=== PATIENT | male | born 1985 | race Hispanic/Latino ===

== ENCOUNTER 2022-09-28 15:00 | Emergency (ER) | payer OTHER, SELFPAY ==
[2022-09-28] VITALS (10 sets, daily range): BP systolic 137–163; BP diastolic 74–109; PULSE 71–101; RESP 16; TEMP 37; O2SAT 96–99
[2022-09-28 15:33] LABS: Alanine Aminotransferase 150 IU/L (<50); Albumin 4.3 g/dL (3.5-5.0); Albumin Globulin Ratio 1.3 (1.0-2.8); Alkaline Phosphatase 74 U/L (38-126); Aspartate Aminotransferase 62 IU/L (17-59); BUN Creatinine Ratio 12.9 (6-22); Bilirubin Total 0.9 mg/dL (0.2-1.3); Blood Urea Nitrogen 13 mg/dL (9-20); Calcium 9.2 mg/dL (8.4-10.2); Carbon Dioxide 26 mmol/L (22-32); Chloride 105 mmol/L (98-107); Estimated Glomerular Filt Rate > 60 mL/min (>60); Globulin 3.3 g/dL (1.7-4.1); Glucose 98 mg/dL (70-100); HEMOLYSIS 16 (0-50); Lipase 160 U/L (23-300); Potassium 4.1 mmol/L (3.4-5.1); Sodium 140 mmol/L (137-145); Total Protein 7.6 g/dL (6.3-8.2)
[2022-09-28 15:46] LABS: Add Manual Diff / Slide Review NO; Basophils Absolute Auto 100 /uL (0-100); Basophils Percent Auto 0.6 % (0-2); Eosinophils Absolute Auto 200 /uL (0-450); Eosinophils Percent Auto 2.2 % (2-4); Hematocrit 43.5 % (41-53); Hemoglobin 15.5 g/dL (13.5-17.5); Lymphocytes Absolute Auto 3300 /uL (1100-4500); Lymphocytes Percent Auto 37.3 % (25-40); Mean Corpuscular HGB Conc 35.6 % (30-36); Mean Corpuscular Hemoglobin 32.6 PG (26-34); Mean Corpuscular Volume 91.4 fL (80-100); Monocytes Absolute Auto 600 /uL (0-900); Neutrophils Absolute Auto 4600 /uL (1500-7000); Neutrophils Percent Auto 52.9 % (50-75); Platelet Count 277 X10^3/uL (150-400); Red Blood Cell Count 4.76 X10^6/uL (4.5-5.9); Red Cell Distribution Width 13.2 % (11.6-14.8); White Blood Cell Count 8.7 X10^3/uL (4.5-11.0)
[2022-09-28] MEDS: PANTOPRAZOLE 40 MG VIAL IV (18:18)
[2022-09-28] MEDS: KETOROLAC 30 MG/ML VIAL 15 MG IV (18:19)
--- NOTE | 2022-09-28 18:30 | DI.US.S_ITS ---
PROCEDURE: US ABDOMEN LIMITED INDICATIONS: RUQ pain x 10 days TECHNIQUE: Real-time focused scanning was performed of the abdomen, with image documentation. COMPARISON: None. FINDINGS: The liver demonstrates increased echogenicity compatible with fatty infiltration. There is a large shadowing gallstone measuring up to approximately 2.2 cm within the gallbladder. Evaluation of wall thickness and gallstone mobility limited due to size of the stone. No definite gallbladder wall thickening. No pericholecystic fluid. Evaluation for sonographic Bender's sign limited secondary to prior administration of pain medication. The extrahepatic biliary ducts were not well visualized. No definite intrahepatic biliary ductal dilatation. The visualized pancreatic head and body appear increased in echogenicity. IMPRESSION: 1. Cholelithiasis with no pericholecystic fluid, definite gallbladder wall thickening, or other evidence of acute cholecystitis. Dictated by: Nasim Bucrh M.D. on 09/28/2022 at 20:16 Approved by: Nasim Burch M.D. on 09/28/2022 at 20:20
--- NOTE | 2022-09-28 18:30 | ED.ABDPAIN ---
HPI - Abdominal Pain General Chief Complaint: Abdominal Pain Stated Complaint: Upper ABD pain Time Seen by Provider: 09/28/22 18:13 Source: patient Mode of arrival: Ambulatory Limitations: no limitations History of Present Illness HPI narrative: This is a 37-year-old male history of migraines. Patient states symptoms have been present for 10 days underneath his ribs in the abdomen he states sharp pain which has been localized to that area occasionally radiates to the back but not consistently to the back. He states it has been constant in the front. Positioning such as flexing his abdomen makes it worse. Patient states food and eating do not make any difference. Patient denies fevers or chills, no nausea or vomiting, no diarrhea constipation, no bright red blood or melena. No urinary symptoms, no flank pain. Has not appreciate any lumps or bumps or bulges, no skin changes. Patient is otherwise healthy he takes Excedrin for migraines. Denies any prior surgical history. No known drug allergies. No tobacco, 2-3 beers nightly, no illicit. Primary care is through the [facility]. Related Data Previous Rx's Medication Instructions Recorded meloxicam 7.5 mg tablet 7.5 mg PO BID PRN pain #14 tabs 09/28/22 Allergies Allergy/AdvReac Type Severity Reaction Status Date / Time No Known Drug Allergies Allergy Verified 09/28/22 15:05 Review of Systems Review of Systems ROS Unobtainable: All systems reviewed & are unremarkable except as noted in HPI and below Patient History Social History Smoking Status: Never smoker Smoking Status: Never smoker alcohol intake frequency: 0-2 drinks per day Exam Narrative Exam Narrative: GENERAL: Alert and oriented x three, well-nourished male in mild distress HEENT: Head normocephalic, atraumatic, EOMI, pupils reactive, face symmetric, moist mucous membranes NECK: Supple, full range of motion CARDIOVASCULAR: Regular rate and rhythm without murmurs, rubs or gallops. RESPIRATORY: Breath sounds equal bilaterally, no wheezes rales or rhonchi. ABDOMEN: Soft, mild generalized right upper quadrant tenderness localized, no mass, lump or hernia. Normoactive bowel sounds all 4 quadrants. No guarding or rebound, rigidity, no mass : No CVA tenderness EXTREMITIES: Normal range of motion, no clubbing or edema. Neurovascularly intact NEUROLOGICAL: Cranial nerves II through XII grossly intact. Moving all extremities SKIN: Warm, dry, no petechiae, no rashes or lesions. Initial Vital Signs Initial Vital Signs: Vital Signs Temperature 98.6 F 09/28/22 15:03 Pulse Rate 84 09/28/22 15:03 Respiratory Rate 16 09/28/22 15:03 Blood Pressure 161/91 H 09/28/22 15:03 Pulse Oximetry 99 09/28/22 15:03 Oxygen Delivery Method 09/28/22 15:03 Course Orders Ordered: ED Orders 09/28/22 18:30 US abdomen limited Stat Discontinued Medications Ketorolac Tromethamine (Ketorolac 30 Mg/Ml Vial) 15 mg IV NOW ONE Stop: 09/28/22 18:14 Last Admin: 09/28/22 18:19 Dose: 15 mg Documented By: DESTINY Pantoprazole Sodium (Pantoprazole 40 Mg Vial) 40 mg IV NOW ONE Stop: 09/28/22 18:14 Last Admin: 09/28/22 18:18 Dose: 40 mg Documented By: DESTINY Tramadol HCl (Tramadol 50 Mg Prepack) 1 bottle MISC SEEINSTR ONE Stop: 09/28/22 20:54 Last Admin: 09/28/22 20:58 Dose: 1 bottle Documented By: FLAKO Consultations Consultation #1: Dr. Omer, general surgery. happy to follow up in office. Patient is currently pain controlled, no signs of infection on imaging, patient has gallstone 2.2 cm with no obvious obstruction Time: 20:55 Vital Signs Vital signs: Vital Signs - 8 hr 09/28/22 18:30 09/28/22 18:31 09/28/22 18:31 Pulse Rate 101 H 85 Blood Pressure 163/74 H Pulse Oximetry 96 98 09/28/22 19:00 09/28/22 19:00 09/28/22 19:30 Pulse Rate 71 Blood Pressure 137/86 155/96 H Pulse Oximetry 99 09/28/22 19:30 09/28/22 20:00 09/28/22 20:00 Pulse Rate 71 83 Blood Pressure 149/89 H Pulse Oximetry 99 99 09/28/22 20:30 09/28/22 20:30 09/28/22 21:00 Pulse Rate 80 78 Blood Pressure 137/85 Pulse Oximetry 99 99 MDM - Abdominal Pain Lab Data Result diagrams: 09/28/22 15:12 09/28/22 15:12 Labs: Lab Results 09/28/22 09/28/22 Range/Units 15:12 15:12 WBC 8.7 (4.5-11.0) X10^3/uL RBC 4.76 (4.5-5.9) X10^6/uL Hgb 15.5 (13.5-17.5) g/dL Hct 43.5 (41-53) % MCV 91.4 (80-100) fL MCH 32.6 (26-34) PG MCHC 35.6 (30-36) % RDW 13.2 (11.6-14.8) % Plt Count 277 (150-400) X10^3/uL Neut % (Auto) 52.9 (50-75) % Lymph % (Auto) 37.3 (25-40) % Patrick % (Auto) 7.0 (3-14) % Eos % (Auto) 2.2 (2-4) % Baso % (Auto) 0.6 (0-2) % Neut # (Auto) 4600 (3267-5564) /uL Lymph # (Auto) 3300 (9428-5945) /uL Patrick # (Auto) 600 (0-900) /uL Eos # (Auto) 200 (0-450) /uL Baso # (Auto) 100 (0-100) /uL Sodium 140 (137-145) mmol/L Potassium 4.1 (3.4-5.1) mmol/L Chloride 105 (98-107) mmol/L Carbon Dioxide 26 (22-32) mmol/L BUN 13 (9-20) mg/dL Creatinine 1.01 (0.66-1.25) mg/dL Estimated GFR > 60 (>60) mL/min BUN/Creatinine Ratio 12.9 (6-22) Glucose 98 (70-100) mg/dL Calcium 9.2 (8.4-10.2) mg/dL Total Bilirubin 0.9 (0.2-1.3) mg/dL AST 62 H (17-59) IU/L ALT 150 H (<50) IU/L Alkaline Phosphatase 74 (38-126) U/L Total Protein 7.6 (6.3-8.2) g/dL Albumin 4.3 (3.5-5.0) g/dL Globulin 3.3 (1.7-4.1) g/dL Albumin/Globulin Ratio 1.3 (1.0-2.8) Lipase 160 (23-300) U/L Point of care testing: Urine Dip Bedside Urine Glucose Negative Bedside Urine Bilirubin - Negative Bedside Urine Ketone - Negative Urine Specific [place] 1.025 Bedside Urine Occult Blood - Negative Bedside Urine pH 6 Bedside Urine Protein +/- 15 Bedside Urine Urobilinogen - Negative Bedside Urine Nitrite - Negative Bedside Urine Leukocytes - Negative Esterase Imaging Data US - abdomen: Radiologist's Impression: Close Abdomen Ultrasound (Signed) Nasim Burch - 09/28/22 [address]?[place] [address] Ultrasound Report Signed Patient: Abdi Landaverde MR#: [id number] : 1985 Acct:[id number] Age/Sex: 37 / M Date of Service: 09/28/22 Loc: ED Accession Number: [id number] ?? Procedure: US abdomen limited Ordering Provider: Tiffany Reza D.O. PROCEDURE: US ABDOMEN LIMITED ? INDICATIONS:? RUQ pain x 10 days ? TECHNIQUE:? Real-time focused scanning was performed of the abdomen, with image documentation.? ? COMPARISON:? None. ? FINDINGS:? ? The liver demonstrates increased echogenicity compatible with fatty infiltration. ? There is a large shadowing gallstone measuring up to approximately 2.2 cm within the gallbladder.? Evaluation of wall thickness and gallstone mobility limited due to size of the stone.? No definite gallbladder wall thickening.? No pericholecystic fluid.? Evaluation for sonographic Bender's sign limited secondary to prior administration of pain medication. ? The extrahepatic biliary ducts were not well visualized.? No definite intrahepatic biliary ductal dilatation. ? The visualized pancreatic head and body appear increased in echogenicity. ? IMPRESSION:? ? 1. Cholelithiasis with no pericholecystic fluid, definite gallbladder wall thickening, or other evidence of acute cholecystitis. ? ? ? Dictated by: Nasim Burch M.D. on 09/28/2022 at 20:16 ? ? Approved by: Nasim Burch M.D. on 09/28/2022 at 20:20?? ECG Data Attestation: I personally reviewed and interpreted this ECG as follows: Prior ECG tracings: not available for review Interpretation: Sinus rhythm rate 87 DE 136 QRS 88 QTC 418. No acute ST changes appreciated. No priors available. MDM Narrative Medical decision making narrative: This is a 37-year-old male with complaint of right upper quadrant pain on exam patient has some mild tenderness, afebrile, labs show slight elevation LFTs this may also be related to daily alcohol intake, ultrasound shows a 2.2 cm stone does not appear to be obstructive, patient does not have gallbladder wall thickening or pericholecystic fluids or signs of cholecystitis, examination, vitals and labs do not reflect any signs of infection. Discussed return precautions. Patient found antacids and Toradol helpful today. Will give prescription for meloxicam, pharmacy closed at this time so prepack of tramadol as I do not have reports from meloxicam and follow-up. Patient to call 1st thing in the morning with general surgery who I spoke with. Discharge Plan Departure Patient Disposition: Home Clinical Impression: Gallstones Instructions: DI for Gallstones Activity Restrictions/Additional Instructions: Follow-up with general surgery to have your gallbladder removed. Please call tomorrow morning to set up an appointment. Let the front office know I spoke with Dr. Omer and he asked for you to reach out. You have a large gallstone in your gallbladder causing your discomfort. Your gallbladder does not appear infected today. You can take meloxicam 1 tablet every 12 hours as needed for pain. You can take Tylenol up to a 1000 mg every 6 hours with this medication. [facility]cription [facility] in [place]. Please return for fevers, rapidly worsening pain, persistent vomiting, lightheadedness or passing out signs of infection or other new or worsening symptoms Prescriptions: New meloxicam 7.5 mg tablet 7.5 mg PO BID PRN (Reason: pain) Qty: 14 0RF Referrals: Radha Woody ARNP [Primary Care Provider] - Eduardo Omer MD [Physician] - Visit Report Forms: Patient Portal/API
[2022-09-28] MEDS: TRAMADOL 50 MG PREPACK 1 BOTTLE MISC (20:58)
== END 2022-09-28 21:02 | disposition home or self-care (01) ==
PROVIDERS: Emergency Medicine; Emergency Provider Emergency Medicine; PCP Nurse Practitioner Family
DX: K80.20 Calculus of gallbladder without cholecystitis without obstruction (principal)
CPT/HCPCS: 36415; 76705; 80053; 81003; 83690; 85025; 93005; 96374; 96375; 99284; C9113; J1885

== ENCOUNTER → 2022-10-16 10:23 | Outpatient (CLI) | payer OTHER, SELFPAY ==
[2022-10-16 12:07] LABS: COVID19 -Nasal RAPID Negative (Negative)
== END ==
PROVIDERS: PCP Nurse Practitioner Family; Visit Provider Surgery
DX: Z20.822 Contact with and (suspected) exposure to COVID-19 (principal); Z01.812 Encounter for preprocedural laboratory examination
CPT/HCPCS: 87635; C9803

== ENCOUNTER 2022-10-17 11:50 | Day surgery (SDC) | payer OTHER, SELFPAY ==
[2022-10-14 08:15] VITALS: BMI 33.5
--- NOTE | 2022-10-17 | DI.RAD.S_ITS ---
PROCEDURE: XR CHOLANGIOGRAM OPERATIVE INDICATIONS: OR COMPARISON: None. FINDINGS: Biliary ducts: The surgeon injected contrast into the biliary ducts after cannulation of the cystic duct stump. Visualized intra- and extrahepatic bile ducts are normal in caliber, without strictures. No intraluminal filling defects to suggest retained ductal stones or sludge. No evidence for iatrogenic ductal injury. Duodenum: Contrast flows promptly through the sphincter of Oddi into the duodenum, which appears normal in caliber. IMPRESSION: Normal operative cholangiogram. Dictated by: Olivier Prado M.D. on 10/17/2022 at 16:28 Approved by: Olivier Prado M.D. on 10/17/2022 at 16:28
--- NOTE | 2022-10-17 | PATH_ITS ---
[facility] Accession Number: [id number] . 01 Material submitted: . gallbladder - GALLBLADDER . 01 Diagnosis: Gallbladder, Cholecystectomy: Cholelithiasis with chronic cholecystitis. No evidence of neoplasm. MRV 10/21/2022 1405 Local . 01 Electronically signed: . Michael Lock MD, PhD, Pathologist NPI- [id number] . 01 Gross description: . The specimen is received in formalin, labeled with the patient's name, , and gallbladder, and consists of an intact gallbladder measuring 6.5 x 3.2 x 2.9 cm. The serosa is nagel and smooth. The hepatic surface is rough and unremarkable. The cystic duct is received closed with a clamp, is inked blue. No pericystic lymph node is identified. Opening the specimen reveals a large brown, roughened calculus measuring 2.9 cm in greatest dimension along with a small amount of brown mucoid bile. The mucosa is brown, velvety, and focally denuded in the area adjacent to the calculus. Multiple yellow pinpoint areas of discoloration are identified consistent with cholesterol deposits. No polyps or lesions are identified. The norris average 0.3 cm thick. Virtual Classroom Manager sections to include the cystic duct margin and full-thickness sections are submitted in cassette A1. ([id number]) /FRR 10/18/2022 1615 Local . 01 Pathologist provided ICD-10: K80.60 . 01 CPT . 175226 Specimen Comment: A courtesy copy of this report has been sent to [phone] Performed at: 01 [facility] [address] [place] [address] [address], [place], [place] [id number] MD Nasim Rod MD Phone: [phone]
[2022-10-17 12:12] VITALS: BP 152/94; PULSE 69; RESP 16; TEMP 36.1; O2SAT 99; BMI 33.5
[2022-10-17] MEDS: LACTATED RINGERS 1,000 ML 42 ML IV (12:23)
--- NOTE | 2022-10-17 14:00 | PM.PREOP ---
Pre-operative Note COVID-19 COVID-19 status: Negative Result date/Date tested (Pos, Neg/Pending): 10/16/22 Interval Note History & Physical reviewed/Exam performed by Physician: Yes Changes to H&P: No ASA Class (for procedural sedation): II
[2022-10-17] MEDS: CEFAZOLIN 2 GM/100 ML PREMIX 100 ML IV (14:51)
--- NOTE | 2022-10-17 15:11 | SUR.OPER ---
Addendum entered by Radha Morin R.N. 10/17/22 15:24: left arm secured on padded arm board, right arm tucked Original Note: Supine on padded OR bed, head on pillow, arms secured on padded arm boards at <90 degrees abduction, legs uncrossed, safety belt at thigh, feet flat to footboard
[2022-10-17] MEDS: IOPAMIDOL 50 ML VIAL INJ (15:28)
[2022-10-17] MEDS: BUPIVACAINE 0.25% (PF) VIAL 30 ML INJ (16:19)
[2022-10-17] MEDS: LIDOCAINE 1% 20 ML INJ (16:21)
[2022-10-17 16:30] VITALS: BP 127/76; PULSE 92; RESP 16; TEMP 36.6; O2SAT 100
--- NOTE | 2022-10-17 16:33 | P.OP_ITS ---
Operative Date/Time/Diagnoses Date of procedure: 10/17/22 Time of procedure: 16:33 Pre-op diagnosis: Gallstones Post-op diagnosis: same Procedure & Clinicians Procedure: Laparoscopic cholecystectomy with intraoperative cholangiogram Same procedure as scheduled: Yes Surgeon: Dannie Whalen Anesthesia Type: General Operative Notes Procedure in detail: The patient was given preoperative antibiotic. The patient was brought to the operating room, placed on the table in the supine position. General endotracheal anesthesia was induced. The abdomen was prepped and draped. A time-out was performed. We made a 1 cm infraumbilical incision. We dissected down to the base of the umbilical stalk using cautery. We grasped the umbilical stalk with a Shreyas clamp to elevate the abdominal wall. We scored the fascia in the midline with cautery 1 cm. We pierced the peritoneum with a Peon clamp. The Julianne port was placed and the abdomen was insufflated to 15 mmHg. A 5 mm 30 degree laparoscopic was inserted. There was no evidence of any injury from the entry. Next, we placed 5 mm ports in the subxiphoid position and right upper quadrant at the midclavicular line and anterior axillary line. Patient was then positioned in reverse Trendelenburg and the table was tilted to the left. The patient had hepatomegaly and the gallbladder was intrahepatic. The gallbladder was grasped at the dome and retracted cephalad. We then dissected the cystic structures with a combination of hook cautery and blunt dissection. Next, a cholangiogram was performed using the 6 Ethiopian ureteral catheter. There was good flow of contrast into the duodenum and liver with no obvious filling defects. The cystic duct common duct junction was well visualized. We then placed clips on the cystic duct and artery and divided the cystic duct and artery sharply between the clips. The gallbladder was then dissected off the liver. There was a very large stone in the mid portion of the gallbladder. Gallbladder did tear several times with spillage of bile. The gallbladder was p laced in a specimen retrieval bag. We irrigated the right upper quadrant and all the aspirate returned clear. We then removed the 5 mm ports under direct vision we removed the Julianne port. The infraumbilical fascial defect had to be increased to about 3 cm to extract the specimen. We then injected some local into the fascia and closed the fascia with 4 interrupted 0 Vicryl sutures. The skin incisions were closed with 4 Monocryl and Steri-Strips were applied. Band- Aids were applied over the Steri-Strips. EBL: 30 mL Specimen: Gallbladder Post-operative Condition: stable Disposition: PACU
[2022-10-17 16:36] VITALS: BP 128/83; PULSE 94; RESP 16; O2SAT 99
[2022-10-17 16:40] VITALS: BP 138/84; PULSE 97; RESP 16; TEMP 36.9; O2SAT 99
[2022-10-17 16:48] VITALS: BP 131/85; PULSE 98; RESP 16; TEMP 37; O2SAT 99
[2022-10-17] MEDS: OXYCODONE/ACETAMINOPHEN 5/325 TABLET 1 TAB PO (17:01)
== END 2022-10-17 17:30 | disposition home or self-care (01) ==
PROVIDERS: PCP Nurse Practitioner Family; Referring Provider Surgery; Visit Provider Surgery
PROC: 0FT44ZZ Resection of Gallbladder, Percutaneous Endoscopic Approach (ICD-10-PCS; CPT 47562; principal; 2022-10-17 14:30)
DX: K80.10 Calculus of gallbladder with chronic cholecystitis without obstruction (principal)
CPT/HCPCS: 47563; 74300; J0690; J1100; J1885; J2250; J2405; J2704; J3010

== ENCOUNTER → 2022-10-22 12:23 | Outpatient (CLI) | payer OTHER, SELFPAY ==
[2022-10-22 14:18] LABS: Alanine Aminotransferase 219 IU/L (<50); Albumin 4.3 g/dL (3.5-5.0); Albumin Globulin Ratio 1.4 (1.0-2.8); Alkaline Phosphatase 73 U/L (38-126); Aspartate Aminotransferase 77 IU/L (17-59); BUN Creatinine Ratio 11.9 (6-22); Bilirubin Total 1.2 mg/dL (0.2-1.3); Blood Urea Nitrogen 10 mg/dL (9-20); Calcium 9.8 mg/dL (8.4-10.2); Carbon Dioxide 26 mmol/L (22-32); Chloride 101 mmol/L (98-107); Estimated Glomerular Filt Rate > 60 mL/min (>60); Glucose 86 mg/dL (70-100); HEMOLYSIS < 15 (0-50); Lipase 137 U/L (23-300); Potassium 4.6 mmol/L (3.4-5.1); Sodium 138 mmol/L (137-145); Total Protein 7.3 g/dL (6.3-8.2)
[2022-10-22 14:27] LABS: Add Manual Diff / Slide Review NO; Basophils Absolute Auto 0 /uL (0-100); Basophils Percent Auto 0.5 % (0-2); Eosinophils Absolute Auto 200 /uL (0-450); Eosinophils Percent Auto 2.1 % (2-4); Hematocrit 43.7 % (41-53); Hemoglobin 15.5 g/dL (13.5-17.5); Lymphocytes Absolute Auto 2600 /uL (1100-4500); Lymphocytes Percent Auto 29.6 % (25-40); Mean Corpuscular HGB Conc 35.5 % (30-36); Mean Corpuscular Hemoglobin 32.6 PG (26-34); Mean Corpuscular Volume 91.8 fL (80-100); Monocytes Absolute Auto 700 /uL (0-900); Monocytes Percent Auto 7.9 % (3-14); Neutrophils Absolute Auto 5200 /uL (1500-7000); Neutrophils Percent Auto 59.9 % (50-75); Platelet Count 241 X10^3/uL (150-400); Red Blood Cell Count 4.76 X10^6/uL (4.5-5.9); Red Cell Distribution Width 13.3 % (11.6-14.8); White Blood Cell Count 8.8 X10^3/uL (4.5-11.0)
== END ==
PROVIDERS: PCP Nurse Practitioner Family; Referring Provider Surgery; Visit Provider Surgery
DX: K80.20 Calculus of gallbladder without cholecystitis without obstruction (principal)
CPT/HCPCS: 36415; 80053; 83690; 85025

== ENCOUNTER → 2022-12-31 10:10 | Outpatient (CLI) | payer OTHER, SELFPAY ==
--- NOTE | 2022-12-31 10:12 | DI.CT.S_ITS ---
PROCEDURE: CT ABDOMEN PELVIS W CON INDICATIONS: Right rib pain TECHNIQUE: After the administration of oral and intravenous contrast, axial sections were acquired from the lung bases to the pubic symphysis. Coronal and sagittal reformats were performed. For radiation dose reduction, the following was used: automated exposure control, adjustment of mA and/or kV according to patient size. COMPARISON:None. FINDINGS: Image quality: Excellent. Lung bases: Unremarkable. Heart: No significant findings. ABDOMEN: Liver: The liver is diffusely hypodense suggesting fatty infiltration. Gallbladder: Surgically absent. Biliary ducts: Unremarkable. Pancreas: Unremarkable. Spleen: Unremarkable. Adrenal Glands: Unremarkable. Kidneys and Ureters: Unremarkable. Stomach and Bowel: Stomach, small bowel loops, and colon are unremarkable. The appendix is thin walled and gas filled. Peritoneum: No abnormal intraperitoneal fluid. No free air. Ventral Wall: No hernia. Abdominal Nodes: No retroperitoneal or mesenteric adenopathy by size criteria. Vessels: Aorta and inferior vena cava are normal in size. PELVIS: Pelvic Organs: Unremarkable. Bladder: Unremarkable. Pelvic Nodes: No enlarged lymph nodes. Miscellaneous: No inguinal hernias are seen. Bones: Unremarkable. IMPRESSION: 1. No acute intra-abdominal findings. Normal appendix. 2. Hepatic steatosis. 3. No findings to explain rib pain where visualized. Please note, only the abdomen and pelvis or imaged. The entirety of the thorax has not been interrogated on this study. Dictated by: Annalise Patel M.D. on 12/31/2022 at 14:40 Approved by: Annalise Patel M.D. on 12/31/2022 at 14:52
[2022-12-31 10:48] LABS: Add Manual Diff / Slide Review NO; Basophils Absolute Auto 100 /uL (0-100); Basophils Percent Auto 0.9 % (0-2); Eosinophils Absolute Auto 200 /uL (0-450); Eosinophils Percent Auto 3.2 % (2-4); Hematocrit 45.6 % (41-53); Hemoglobin 16.1 g/dL (13.5-17.5); Lymphocytes Absolute Auto 2400 /uL (1100-4500); Lymphocytes Percent Auto 38.7 % (25-40); Mean Corpuscular HGB Conc 35.3 % (30-36); Mean Corpuscular Hemoglobin 32.3 PG (26-34); Mean Corpuscular Volume 91.6 fL (80-100); Monocytes Absolute Auto 500 /uL (0-900); Monocytes Percent Auto 8.2 % (3-14); Neutrophils Absolute Auto 3100 /uL (1500-7000); Platelet Count 239 X10^3/uL (150-400); Red Blood Cell Count 4.98 X10^6/uL (4.5-5.9); Red Cell Distribution Width 13.4 % (11.6-14.8); White Blood Cell Count 6.3 X10^3/uL (4.5-11.0)
[2022-12-31 10:58] LABS: Alanine Aminotransferase 281 IU/L (<50); Albumin 4.6 g/dL (3.5-5.0); Albumin Globulin Ratio 1.4 (1.0-2.8); Alkaline Phosphatase 77 U/L (38-126); Aspartate Aminotransferase 138 IU/L (17-59); BUN Creatinine Ratio 13.1 (6-22); Bilirubin Total 1.4 mg/dL (0.2-1.3); Blood Urea Nitrogen 11 mg/dL (9-20); Calcium 9.5 mg/dL (8.4-10.2); Carbon Dioxide 26 mmol/L (22-32); Chloride 104 mmol/L (98-107); Estimated Glomerular Filt Rate > 60 mL/min (>60); Globulin 3.3 g/dL (1.7-4.1); Glucose 95 mg/dL (70-100); HEMOLYSIS < 15 (0-50); Potassium 4.2 mmol/L (3.4-5.1); Sodium 139 mmol/L (137-145); Total Protein 7.9 g/dL (6.3-8.2)
== END ==
PROVIDERS: PCP Nurse Practitioner Family; Referring Provider Surgery; Visit Provider Surgery
DX: R07.81 Pleurodynia (principal); K76.0 Fatty (change of) liver, not elsewhere classified; Z90.49 Acquired absence of other specified parts of digestive tract
CPT/HCPCS: 36415; 74177; 80053; 85025; 99213; Q9967

== ENCOUNTER → 2023-02-20 13:29 | Outpatient (CLI) | payer OTHER, SELFPAY ==
--- NOTE | 2023-02-20 | DI.ECHO.S_ITS ---
[facility] +---------+ : : [address] : [address] : : : : [id number] : : : : Phone: [phone]+ Echocardiogram Report + + :Name: RAJ ALAN Study Date: 02/20/2023 Height: 67 in : :[facility] ReadingLocation: Weight: 215 lb : : Gender: Male BSA: 2.1 m2 : :: 1985 Age: 37 yrs BP: 141/85 mmHg: :Reason For Study: HYPERTENSION HR: 80 : :Ordering Physician: ELY, : :VENKAT Performed By: HERMAN SAEED : :Referring: VENKAT WILDE : + + Interpretation Summary 1) Normal left ventricular thickness, size, wall motion, and systolic function (EF 55-60%). 2) Normal right ventricular size and function. 3) No significant valvular abnormalities. 4) No prior Echo available for comparison. Procedure: A two-dimensional transthoracic echocardiogram with color flow and Doppler was performed. The study quality was technically adequate. There is no prior echocardiogram noted for this patient. The patient was in normal sinus rhythm during the exam. Left Ventricle: The left ventricle is normal in size and wall thickness. Left ventricular systolic function is normal. The ejection fraction is estimated to be 55-60%. Left ventricular wall motion is normal. Diastolic parameters suggest probable normal left ventricular diastolic function and normal filling pressures. Right Ventricle: The right ventricle is normal in size and function. Atria: Both atria are normal in size. There is no Doppler evidence for an interatrial shunt. Mitral Valve: The mitral valve is normal in structure and function. There is no mitral regurgitation noted. Aortic Valve: The aortic valve is trileaflet. The aortic valve opens well. There is no aortic valve stenosis. There is trace aortic regurgitation. Tricuspid Valve: The tricuspid valve is normal. There is trace tricuspid regurgitation. Pulmonary artery pressures cannot be estimated because of the lack of a measurable TR jet velocity. Pulmonic Valve: The pulmonic valve leaflets are thin and pliable; valve motion is normal. There is no pulmonic valvular regurgitation. Great Vessels: The aortic root is normal size. The ascending aorta is normal in size. The IVC is of normal diameter and collapses greater than 50% with a sniff. This suggests a low right atrial pressure of 3 mm Hg. Pericardium/ Pleura There is no pericardial effusion. There is no pleural effusion. MMode/2D Measurements & Calculations LVIDd: 4.7 cm LVOT diam: 2.2 cm LVIDs: 2.9 cm Ao root diam: 3.5 cm FS: 37.8 % asc Aorta Diam: 2.7 cm IVSd: 0.95 cm LVPWd: 1.1 cm LV rogers. diameter/BSA (cm/m^2): 2.2 LV sys. diameter/BSA (cm/m^2): 1.4 LA A2 area: 14.7 cm2 RA long axis: 5.2 cm LA A4 area: 11.5 cm2 RA area: 12.5 cm2 LA length (vol): 4.1 cm RA vol: 25.8 ml LA vol: 35.0 ml RA : 12.4 ml/m2 LA vol index: 16.8 ml/m2 TAPSE: 1.8 cm Doppler Measurements & Calculations Ao V2 max: 194.5 cm/sec LVOT Max Dylan: 110.9 cm/sec Ao V2 mean: 137.5 cm/sec LV V1 max P.9 mmHg Ao max P.1 mmHg LV V1 VTI: 21.9 cm Ao mean P.3 mmHg NAINA(I,D): 2.6 cm2 Ao V2 VTI: 32.2 cm NAINA(V,D): 2.2 cm2 sev ratio: 0.68 NAINA indexed to BSA (cm^2/m^2): 1.3 MV E max dylan: 69.4 cm/sec PA V2 max: 101.5 cm/sec MV A max dylan: 87.8 cm/sec PA V2 mean: 74.1 cm/sec MV E/A: 0.79 PA mean P.4 mmHg Med Peak E' Dylan: 10.2 cm/sec PA pr(Accel): 27.6 mmHg E/E' med: 6.8 Lat Peak E' Dylan: 16.3 cm/sec E/E' lat: 4.3 E/e' average: 5.5 MV dec time: 0.19 sec SV(LVOT): 85.3 ml Reading Physician:02:34 PM
== END ==
PROVIDERS: PCP Nurse Practitioner Family; Referring Provider Internal Medicine Cardiovascular Disease; Visit Provider Internal Medicine Cardiovascular Disease
DX: I10 Essential (primary) hypertension (principal)
CPT/HCPCS: 93306

== ENCOUNTER → 2023-05-05 11:47 | Outpatient (CLI) | payer OTHER, SELFPAY ==
--- NOTE | 2023-05-05 | DI.MRI.S_ITS ---
PROCEDURE: MR THORACIC SPINE WO CON INDICATIONS: Pain in thoracic spine TECHNIQUE: Noncontrast sagittal T1 spine echo and T2 fast spin echo, sagittal STIR, and T2 fast spin echo through the thoracic spine. COMPARISON: None. FINDINGS: Image quality: Excellent. Alignment and Curvature: There is normal bony alignment. Bone Marrow: Marrow is of normal overall signal. No acute vertebral body compression fractures. Spinal Cord: Visualized spinal cord is normal in size and signal. Paraspinous Soft Tissues: No paravertebral masses. Miscellaneous: On axial images, central canal and foramina appear widely patent at all scanned levels. IMPRESSION: Normal MRI of the thoracic spine Approved by: Arben Sung M.D. on 05/05/2023 at 14:39
== END ==
PROVIDERS: PCP Nurse Practitioner Family; Referring Provider Physical Medicine & Rehabilitation Pain Medicine; Visit Provider Physical Medicine & Rehabilitation Pain Medicine
DX: M54.6 Pain in thoracic spine (principal)
CPT/HCPCS: 72146

== ENCOUNTER 2025-01-02 12:56 | Emergency (ER) | payer OTHER, SELFPAY ==
[2025-01-02] VITALS (11 sets, daily range): BP systolic 126–140; BP diastolic 72–88; PULSE 74–100; RESP 13–21; TEMP 36.3; O2SAT 96–99; BMI 34.4
[2025-01-02 13:33] LABS: Add Manual Diff / Slide Review NO; Basophils Absolute Auto 100 /uL (0-100); Basophils Percent Auto 0.9 % (0-2); Eosinophils Absolute Auto 100 /uL (0-450); Eosinophils Percent Auto 1.5 % (2-4); Hematocrit 44.8 % (41-53); Hemoglobin 15.7 g/dL (13.5-17.5); Lymphocytes Absolute Auto 2400 /uL (1100-4500); Lymphocytes Percent Auto 37.9 % (25-40); Mean Corpuscular Hemoglobin 32.3 PG (26-34); Mean Corpuscular Volume 92.2 fL (80-100); Monocytes Absolute Auto 400 /uL (0-900); Neutrophils Absolute Auto 3300 /uL (1500-7000); Neutrophils Percent Auto 52.7 % (50-75); Platelet Count 242 X10^3/uL (150-400); Red Blood Cell Count 4.86 X10^6/uL (4.5-5.9); Red Cell Distribution Width 13.2 % (11.6-14.8); White Blood Cell Count 6.3 X10^3/uL (4.5-11.0)
[2025-01-02 13:43] LABS: Alanine Aminotransferase 162 IU/L (<50); Albumin 4.7 g/dL (3.5-5.0); Albumin Globulin Ratio 1.5 (1.0-2.8); Alkaline Phosphatase 56 U/L (38-126); Aspartate Aminotransferase 92 IU/L (17-59); BUN Creatinine Ratio 9.7 (6-22); Bilirubin Total 1.2 mg/dL (0.2-1.3); Blood Urea Nitrogen 10 mg/dL (9-20); Calcium 9.8 mg/dL (8.4-10.2); Carbon Dioxide 25 mmol/L (22-32); Chloride 106 mmol/L (98-107); Estimated Glomerular Filt Rate > 60 mL/min (>60); Globulin 3.1 g/dL (1.7-4.1); Glucose 103 mg/dL (70-100); HEMOLYSIS < 15 (0-50); Lipase 151 U/L (23-300); Sodium 138 mmol/L (137-145); Total Protein 7.8 g/dL (6.3-8.2)
--- NOTE | 2025-01-02 15:32 | ED.ABDPAIN ---
HPI - Abdominal Pain General Chief Complaint: Abdominal Pain Stated Complaint: abd pain right sided Time Seen by Provider: 01/02/25 15:32 Source: patient, RN notes reviewed and old records reviewed Mode of arrival: Ambulatory Limitations: no limitations History of Present Illness HPI narrative: 39-year-old male history of hypertension and cholecystectomy presents with complaint of right-sided abdominal pain. Patient states had a cholecystectomy in 2022. Has been having right upper quadrant pain he describes as sort of underneath the right rib but also involving the right rib for the past several days has had on and off in the past but it is become more persistent. He describes it as worse with food. States it almost feels like something is moving through and causing pain right after he eats or drinks. Denies fevers. No nausea or vomiting. No shortness of breath no chest pain otherwise. He states when he pushes on the rib it causes some pain but also in the right upper quadrant. States it does radiate around towards the back occasionally. Denies any issues with bowel movements no black or bloody stools. No urinary symptoms. No rash or skin changes. Patient states he was on lisinopril and pantoprazole daily. No known drug allergies. Tobacco, drinks 2 or 3 glasses of alcohol daily, no recreational drugs. Related Data Home Medications Medication Instructions Recorded Confirmed dicyclomine 20 mg tablet 20 mg PO QID 10/13/22 12/31/22 famotidine 20 mg tablet 20 mg PO BID 10/13/22 12/31/22 methocarbamol 500 mg tablet 500 mg PO TID PRN Muscle spasm, 10/13/22 12/31/22 pain tramadol 50 mg tablet 50 mg PO BID PRN Pain 10/13/22 12/31/22 Previous Rx's Medication Instructions Recorded sucralfate 1 gram tablet (Carafate) 1 g PO QACHS #40 tabs 01/02/25 Allergies Allergy/AdvReac Type Severity Reaction Status Date / Time No Known Drug Allergies Allergy Verified 12/31/22 09:36 Review of Systems Review of Systems ROS Unobtainable: All systems reviewed & are unremarkable except as noted in HPI and below Patient History Medical History Hyperlipemia Family History Mother Cancer Social History household members: spouse Smoking Status: Never smoker alcohol intake: current Smoking Status: Never smoker alcohol intake frequency: a few times a week Alcohol type: beer Exam Narrative Exam Narrative: GENERAL: Alert and oriented x three, male in mild distress HEENT: Head normocephalic, atraumatic, EOMI, pupils reactive, face symmetric, moist mucous membranes NECK: Supple, full range of motion CARDIOVASCULAR: Regular rate and rhythm without murmurs, rubs or gallops. RESPIRATORY: Breath sounds equal bilaterally, no wheezes rales or rhonchi. No tachypnea, no accessory muscle use. ABDOMEN: Soft, patient is minimally tender right upper quadrant is actually little bit more tender over the lateral right rib at the angle. No rash or skin changes no mass.. Normoactive bowel sounds all 4 quadrants. No guarding or rebound, rigidity, no mass : No CVA tenderness EXTREMITIES: Normal range of motion, no clubbing or edema. Neurovascularly intact NEUROLOGICAL: Cranial nerves II through XII grossly intact. Moving all extremities SKIN: Warm, dry, no petechiae, no rashes or lesions. Initial Vital Signs Initial Vital Signs: Vital Signs Temperature 97.4 F L 01/02/25 13:01 Pulse Rate 86 01/02/25 13:01 Respiratory Rate 18 01/02/25 13:01 Blood Pressure 139/86 01/02/25 13:01 Pulse Oximetry 99 01/02/25 13:01 Oxygen Delivery Method Room Air 01/02/25 13:01 Course Orders Ordered: ED Orders 01/02/25 13:24 Complete Blood Count AUTO DIFF Stat Comprehensive Metabolic Panel Stat Lipase Stat 01/02/25 15:47 CT abdomen pelvis w con Stat Discontinued Medications Al Hydrox/Mg Hydrox/Simethicone 20 ml/ Lidocaine HCl 15 ml 0 ml PO NOW ONE Stop: 01/02/25 15:48 Last Admin: 01/02/25 16:03 Dose: 35 ml Documented By: DOLLY Ondansetron HCl (Ondansetron 4 Mg/2 Ml Inj) 4 mg IV NOW PRN PRN Reason: Nausea And Vomiting Ondansetron HCl (Ondansetron 4 Mg Odt) 4 mg PO NOW PRN PRN Reason: Nausea And Vomiting Pantoprazole Sodium (Pantoprazole 40 Mg Vial) 40 mg IV NOW ONE Stop: 01/02/25 15:48 Last Admin: 01/02/25 16:03 Dose: 40 mg Documented By: DOLLY Vital Signs Vital signs: Vital Signs - 8 hr 01/02/25 13:01 01/02/25 13:22 01/02/25 13:23 Temperature 97.4 F L Pulse Rate 86 82 Respiratory Rate 18 Blood Pressure 139/86 137/80 Pulse Oximetry 99 98 Oxygen Delivery Method Room Air 01/02/25 13:23 01/02/25 13:30 01/02/25 13:30 Temperature Pulse Rate 82 74 Respiratory Rate 20 14 Blood Pressure 126/72 Pulse Oximetry 97 97 Oxygen Delivery Method 01/02/25 14:00 01/02/25 14:00 01/02/25 14:30 Temperature Pulse Rate 74 Respiratory Rate 17 Blood Pressure 131/74 136/73 Pulse Oximetry 97 Oxygen Delivery Method 01/02/25 14:30 01/02/25 15:00 01/02/25 15:00 Temperature Pulse Rate 82 80 Respiratory Rate 14 13 Blood Pressure 139/77 Pulse Oximetry 97 96 Oxygen Delivery Method 01/02/25 15:30 01/02/25 15:30 01/02/25 16:00 Temperature Pulse Rate 83 100 H Respiratory Rate 14 Blood Pressure 137/79 Pulse Oximetry 96 97 Oxygen Delivery Method 01/02/25 16:10 01/02/25 16:10 01/02/25 16:30 Temperature Pulse Rate 84 76 Respiratory Rate 21 17 Blood Pressure 140/88 Pulse Oximetry 97 97 Oxygen Delivery Method 01/02/25 16:30 Temperature Pulse Rate Respiratory Rate Blood Pressure 127/84 Pulse Oximetry Oxygen Delivery Method MDM - Abdominal Pain Lab Data 01/02/25 13:24 01/02/25 13:24 Labs: Lab Results 01/02/25 Range/Units 13:24 WBC 6.3 (4.5-11.0) X10^3/uL RBC 4.86 (4.5-5.9) X10^6/uL Hgb 15.7 (13.5-17.5) g/dL Hct 44.8 (41-53) % MCV 92.2 (80-100) fL MCH 32.3 (26-34) PG MCHC 35.0 (30-36) % RDW 13.2 (11.6-14.8) % Plt Count 242 (150-400) X10^3/uL Neut % (Auto) 52.7 (50-75) % Lymph % (Auto) 37.9 (25-40) % [place] % (Auto) 7.0 (3-14) % Eos % (Auto) 1.5 L (2-4) % Baso % (Auto) 0.9 (0-2) % Neut # (Auto) 3300 (6948-8390) /uL Lymph # (Auto) 2400 (1957-8856) /uL [place] # (Auto) 400 (0-900) /uL Eos # (Auto) 100 (0-450) /uL Baso # (Auto) 100 (0-100) /uL Sodium 138 (137-145) mmol/L Potassium 4.0 (3.4-5.1) mmol/L Chloride 106 (98-107) mmol/L Carbon Dioxide 25 (22-32) mmol/L BUN 10 (9-20) mg/dL Creatinine 1.03 (0.66-1.25) mg/dL Estimated GFR > 60 (>60) mL/min BUN/Creatinine Ratio 9.7 (6-22) Glucose 103 H (70-100) mg/dL Calcium 9.8 (8.4-10.2) mg/dL Total Bilirubin 1.2 (0.2-1.3) mg/dL AST 92 H (17-59) IU/L ALT 162 H (<50) IU/L Alkaline Phosphatase 56 (38-126) U/L Total Protein 7.8 (6.3-8.2) g/dL Albumin 4.7 (3.5-5.0) g/dL Globulin 3.1 (1.7-4.1) g/dL Albumin/Globulin Ratio 1.5 (1.0-2.8) Lipase 151 (23-300) U/L Point of care testing: Urine Dip Bedside Urine Glucose Negative Bedside Urine Bilirubin - Negative Bedside Urine Ketone - Negative Urine Specific [place] 1.010 Bedside Urine Occult Blood - Negative Bedside Urine pH 6.0 Bedside Urine Protein - Negative Bedside Urine Urobilinogen - Negative Bedside Urine Nitrite - Negative Bedside Urine Leukocytes - Negative Esterase Imaging Data CT scan - abdomen/pelvis: Radiologist's Impression: Abdi Bernal??He/Him/His??39??M??1985 ? Allergy/Adv: No Known Drug Allergies (More??) Close Abdomen/Pelvis CT (Signed) Abner mcwilliams - 01/02/25 Thoracic Spine MRI (Signed) Sung,Arben - 05/05/23 Echocardiogram Ultrasound (Signed) Miley Wilde - 02/20/23 Abdomen/Pelvis CT (Signed) Annalise Patel - 12/31/22 Cholangiogram,Operative (Signed) Olivier Prado - 10/17/22 Abdomen Ultrasound (Signed) Nasim Burch - 09/28/22 Launch?[place] [address] CT Scan Report Signed Patient: Abdi Bernal MR#: [id number] : 1985 Acct:[id number] Age/Sex: 39 / M Date of Service: 01/02/25 Loc: ED Accession Number: [id number] Procedure: CT abdomen pelvis w con Ordering Provider: Tiffany Reza D.O. PROCEDURE: CT ABDOMEN PELVIS W CON INDICATIONS: RUQ pain, worse w/ food. hx cholecystectomy, tender rib TECHNIQUE: After the administration of intravenous contrast, axial sections acquired from the lung bases to the pubic symphysis. Coronal and sagittal reformats were performed. For radiation dose reduction, the following was used: automated exposure control, adjustment of mA and/or kV according to patient size. COMPARISON: [facility], CT, CT ABDOMEN PELVIS W CON, 12/31/2022, 11:49. FINDINGS: Image quality: Diagnostic. Lower Chest: No significant findings. ABDOMEN: Liver: No solid mass. Moderate hepatic steatosis. Patent portal vein. Gallbladder: Absent. Biliary ducts: No biliary dilation. Pancreas: No ductal dilation. Spleen: Size is within normal limits. Adrenal Glands: No adrenal nodules. Kidneys and Ureters: No hydronephrosis. No solid mass. No complex renal cystic lesion which requires follow up. Stomach and Bowel: Normal colonic caliber, without significant wall thickening. No significant diverticulosis. Normal appendix. Peritoneum: No abnormal intraperitoneal fluid. No free air. Ventral Wall: No significant ventral hernia. Small umbilical hernia containing fat. Abdominal Nodes: No retroperitoneal or mesenteric adenopathy by size criteria. Vessels: Aorta and inferior vena cava are normal in size. No significant atherosclerotic disease. PELVIS: Pelvic Organs: Unremarkable. Bladder: No bladder wall thickening, accounting for underdistention. Pelvic Nodes: No enlarged lymph nodes. Miscellaneous: No inguinal hernias are seen. Bones: No aggressive osseous abnormality. IMPRESSION: No findings to explain the patient's postprandial pain. Cholecystectomy. Normal pancreas. Normal bowel. Dictated by: Abner Srinivasan M.D. on 01/02/2025 at 16:00 Approved by: Abner Srinivasan M.D. on 01/02/2025 at 16:02 [facility] Narrative Medical decision making narrative: 39-year-old male with complaint of right-sided rib pain worse after eating starting Thursday had prior cholecystectomy. On exam patient's pain is more reproducible over the right rib he has had no trauma or injuries has had a prior cholecystectomy but has complaint of right upper quadrant pain worse with food symptoms seem most consistent with possible ulcer or possibly biliary dyskinesia patient's labs show a slightly elevated AST and ALT but he does note that he drinks alcohol 2 or 3 glasses daily. Patient patient's history of prior surgery, pain that is seems to be more reproducible over the rib but sounds more GI in nature CT abdomen pelvis was obtained. Labs show white count of 6.3 hemoglobin of 15 platelets of 242, chemistry shows normal electrolytes, BUN creatinine 1.03 glucose of 103 bilirubin is 1.2 AST is 92 ALT is 162 alk-phos is 56 lipase is 151. Point of care urine shows no acute change. CT abdomen pelvis shows no acute findings moderate hepatic steatosis patent portal vein gallbladder is absent normal appendix. Patient does feel improved after Protonix and GI cocktail. Discussed with patient CT imaging maybe negative and next steps would be appropriate to have follow up for EGD. Patient is on pantoprazole 40 mg daily we will have him add Carafate to see if this improves his symptoms. Patient has been following with Gastroenterology recommend that he follow up for upper GI. Patient has been seeing Dr. Palmer with Gastroenterology at [facility] he states they have been discussing possibly EGD. Discharge Plan Departure Patient Disposition: Home Clinical Impression: Abdominal pain Instructions: DI for Abdominal Pain-Adult Activity Restrictions/Additional Instructions: Follow up with your physician or Gastroenterology. Your workup today shows some very mildly elevated liver enzymes of your AST and ALT but normal bilirubin and lipase. Based on your symptoms I would recommend follow up for upper endoscopy. 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 Continue with your pantoprazole 40 mg daily. Take Carafate prior to meals 3-4 times daily. Prescription sent to [facility] in [place]. Please return for fevers, new or worsening abdominal back or flank pain, vomiting, black or bloody stools, lightheadedness or passing out, new chest pain or shortness of breath or other new or concerning changes. Prescriptions: New sucralfate [Carafate] 1 gram tablet [facility] Qty: 40 0RF No Action dicyclomine 20 mg tablet 20 mg PO QID famotidine 20 mg tablet 20 mg PO BID methocarbamol 500 mg tablet 500 mg PO TID PRN (Reason: Muscle spasm, pain) tramadol 50 mg tablet 50 mg PO BID PRN (Reason: Pain) Referrals: Andrei Palmer MD [Non-Staff] - Radha Woody ARNP [Primary Care Provider] - Stand Alone Forms: Patient Portal/API/Survey
--- NOTE | 2025-01-02 15:47 | DI.CT.S_ITS ---
PROCEDURE: CT ABDOMEN PELVIS W CON INDICATIONS: RUQ pain, worse w/ food. hx cholecystectomy, tender rib TECHNIQUE: After the administration of intravenous contrast, axial sections acquired from the lung bases to the pubic symphysis. Coronal and sagittal reformats were performed. For radiation dose reduction, the following was used: automated exposure control, adjustment of mA and/or kV according to patient size. COMPARISON: [facility], CT, CT ABDOMEN PELVIS W CON, 12/31/2022, 11:49. FINDINGS: Image quality: Diagnostic. Lower Chest: No significant findings. ABDOMEN: Liver: No solid mass. Moderate hepatic steatosis. Patent portal vein. Gallbladder: Absent. Biliary ducts: No biliary dilation. Pancreas: No ductal dilation. Spleen: Size is within normal limits. Adrenal Glands: No adrenal nodules. Kidneys and Ureters: No hydronephrosis. No solid mass. No complex renal cystic lesion which requires follow up. Stomach and Bowel: Normal colonic caliber, without significant wall thickening. No significant diverticulosis. Normal appendix. Peritoneum: No abnormal intraperitoneal fluid. No free air. Ventral Wall: No significant ventral hernia. Small umbilical hernia containing fat. Abdominal Nodes: No retroperitoneal or mesenteric adenopathy by size criteria. Vessels: Aorta and inferior vena cava are normal in size. No significant atherosclerotic disease. PELVIS: Pelvic Organs: Unremarkable. Bladder: No bladder wall thickening, accounting for underdistention. Pelvic Nodes: No enlarged lymph nodes. Miscellaneous: No inguinal hernias are seen. Bones: No aggressive osseous abnormality. IMPRESSION: No findings to explain the patient's postprandial pain. Cholecystectomy. Normal pancreas. Normal bowel. Dictated by: Abner Srinivasan M.D. on 01/02/2025 at 16:00 Approved by: Abner Srinivasan M.D. on 01/02/2025 at 16:02
[2025-01-02] MEDS: MAG HYDROX/ALUMINUM/SIMETH SUS 20 ML, LIDOCAINE VISCOUS 2% 15 ML PO (16:03)
[2025-01-02] MEDS: PANTOPRAZOLE 40 MG VIAL IV (16:03)
== END 2025-01-02 16:45 | disposition home or self-care (01) ==
PROVIDERS: Emergency Provider Emergency Medicine; PCP Nurse Practitioner Family
DX: R10.11 Right upper quadrant pain (principal); I10 Essential (primary) hypertension; E78.5 Hyperlipidemia, unspecified
CPT/HCPCS: 36415; 74177; 80053; 81003; 83690; 85025; 96374; 99284; J2470; Q9967

== ENCOUNTER → 2025-05-02 13:38 | Outpatient (CLI) | payer OTHER, SELFPAY ==
--- NOTE | 2025-05-02 | DI.MRI.S_ITS ---
PROCEDURE: MR THORACIC SPINE WO CON INDICATIONS: abd pain, suspect intercostal nerve cause TECHNIQUE: Noncontrast sagittal T1 spine echo and T2 fast spin echo, sagittal STIR, and T2 fast spin echo through the thoracic spine. COMPARISON: [facility], , MR THORACIC SPINE WO CON, 05/05/2023, 12:02. FINDINGS: Image quality: Excellent. Alignment and Curvature: There is normal bony alignment. Bone Marrow: Marrow is of normal overall signal. No acute vertebral body compression fractures. Spinal Cord: Visualized spinal cord is normal in size and signal. Paraspinous Soft Tissues: No paravertebral masses. Miscellaneous: On axial images, central canal and foramina appear widely patent at all scanned levels. IMPRESSION: No acute osseous abnormalities. No significant degenerative changes. No central canal or neural foraminal stenosis. Dictated by: Felix Orozco M.D. on 05/02/2025 at 15:34 Approved by: Felix Orozco M.D. on 05/02/2025 at 15:36
== END ==
LOC: MRI 13:39
PROVIDERS: PCP Nurse Practitioner Family; Referring Provider Student in an Organized Health Care Education/Training Program; Visit Provider Student in an Organized Health Care Education/Training Program
DX: R10.9 Unspecified abdominal pain (principal)
CPT/HCPCS: 72146